=== PATIENT | male | born 1995 ===

== ENCOUNTER 2020-05-09 12:39 | Emergency (ER) | payer OTHER ==
[~2020-05-09] VITALS: Ht 177.8 cm; Wt 65.8 kg
== END 2020-05-09 18:12 | disposition home or self-care (01) ==
LOC: ER 12:39
DX: B34.9 Viral infection, unspecified (principal); E86.0 Dehydration; D69.49 Other primary thrombocytopenia; R06.02 Shortness of breath; Z03.818 Encounter for observation for suspected exposure to other biological agents ruled out